=== PATIENT | male | born 1995 | race Two or more races ===

== ENCOUNTER 2019-12-12 15:35 | Emergency (ER) | payer OTHER ==
[2019-12-12] MEDS ORDERED: Lidocaine 1% 10 ML MDV INJECT ONE (15:53)
--- NOTE | 2019-12-12 15:59 | EDM.PDOC ---
ED HPI GENERAL MEDICAL PROBLEM - General Chief Complaint: Laceration Stated Complaint: R INDEX FINGER LAC Time Seen by Provider: 12/12/19 15:48 Source of Information: Reports: Patient History Limitations: Reports: No Limitations - History of Present Illness INITIAL COMMENTS - FREE TEXT/NARRATIVE: The patient was working up on a work over [employer] and a strong [place] of wind blew him around and he grabbed something to hold on and got his right index finger crushed. He has no other injuries. He is not sure of his last tetanus. He went to a clinic up by [place] and they did some x-rays and sent him here. He is right handed. Onset: Sudden Duration: Hour(s): Location: Reports: Upper Extremity, Right (index finger) Quality: Reports: Sharp Severity: Moderate Improves with: Reports: Immobilization Worsens with: Reports: Movement Context: Reports: Trauma (Crush injury to the right index finger) Associated Symptoms: Reports: No Other Symptoms Right Finger-Index Pain Score (Numeric/FACES): 7 - Related Data Allergies Allergy/AdvReac Type Severity Reaction Status Date / Time No Known Allergies Allergy Verified 12/12/19 15:48 Home Meds: Home Meds Hydrocodone/Acetaminophen [Hydrocodone-Acetamin 5-325 mg] 1 - 2 each PO Q6HR PRN #20 tablet 12/12/19 [Rx] cephALEXin [Keflex] 500 mg PO QID #28 capsule 12/12/19 [Rx] Past Medical History - Past Health History Medical/Surgical History: Denies Medical/Surgical History Social & Family History - Tobacco Use Smoking Status *Q: Never Smoker - Recreational Drug Use Recreational Drug Use: No ED ROS GENERAL - Review of Systems Review Of Systems: See Below Constitutional: Reports: No Symptoms HEENT: Reports: No Symptoms Respiratory: Reports: No Symptoms Cardiovascular: Reports: No Symptoms Endocrine: Reports: No Symptoms GI/Abdominal: Reports: No Symptoms : Reports: No Symptoms Musculoskeletal: Reports: Other (Right index finger has been crushed) ED EXAM, SKIN/RASH Exam: See Below Exam Limited By: No Limitations General Appearance: Alert, No Apparent Distress Ears: Normal External Exam Nose: Normal Inspection Head: Atraumatic, Normocephalic Neck: Normal Inspection Respiratory/Chest: No Respiratory Distress Extremities: Other (Edema to the right index finger with elevation of the entire nail. There is some superficial skin tears to the finger. He has good capillary refill and sensation to the finger.) ED SKIN PROCEDURES - Laceration/Wound Repair Right Digit - 2nd (Index) Appearance: Superficial, Irregular Distal NVT: Neuro & Vascular Intact, No Tendon Injury Anesthetic Type: Digital Local Anesthesia - Lidocaine (Xylocaine): 1% Plain Local Anesthetic Volume: 4cc Skin Prep: Saline Exploration/Debridement/Repair: Wound Explored, In a Bloodless Field, Explored to Base Closed with: Sutures Lac/Wound length In cm: 2 # of Sutures: 4 Suture Type: Nylon, Interrupted, Simple Tetanus Status Addressed: Yes Complications: No Course - Vital Signs Last Recorded V/S: Last Vital Signs Temp 97.8 F 12/12/19 15:46 Pulse 58 L 12/12/19 15:46 Resp 15 12/12/19 15:46 BP 138/88 12/12/19 15:46 Pulse Ox 100 12/12/19 15:46 - Orders/Labs/Meds Orders: Active Orders 24 hr Category Date Time Status Vaccines to be Administered [RC] PER UNIT ROUTINE Care 12/12/19 15:53 Active Meds: Medications Discontinued Medications Generic Name Dose Route Start Last Admin Trade Name Freq PRN Reason Stop Dose Admin Diphtheria/Tetanus/Acell Pertussis 0.5 ml 12/12/19 15:53 12/12/19 16:40 Adacel IM 12/12/19 15:54 0.5 ml .ONCE ONE Administration Lidocaine HCl 10 ml 12/12/19 15:53 12/12/19 16:42 Xylocaine 1% INJECT 12/12/19 15:54 10 ml ONETIME ONE Administration - Re-Assessments/Exams Free Text/Narrative Re-Assessment/Exam: 12/12/19 15:59 I ordered tetanus. I will try to load the films and take a look at them. I will numb his finger and see if I can close some of the lacerations. 12/12/19 16:56 His x-ray shows a small tuft fracture off the tip of the phalynx. I had to suture the nail in place for hemostasis and to close the wound it was at the base of the nail. He remembered he did have a tetanus shot a couple years ago. I canceled ours. I gave him a shot of rocephin 1 gram IM. I will also get him on keflex and something for pain. Departure - Departure Time of Disposition: 17:00 Disposition: Home, Self-Care 01 Condition: Good Clinical Impression: Crushing injury of finger of right hand, Nail bed injury Laceration of right index finger Qualifiers: Encounter type: initial encounter Damage to nail status: without damage Foreign body presence: without foreign body Qualified Code(s): S61.210A - Laceration without foreign body of right index finger without damage to nail, initial encounter Open finger fracture Qualifiers: Encounter type: initial encounter Finger: index finger Phalanx: distal Fracture alignment: nondisplaced Laterality: right Qualified Code(s): S62.660B - Nondisplaced fracture of distal phalanx of right index finger, initial encounter for open fracture - Discharge Information *PRESCRIPTION DRUG MONITORING PROGRAM REVIEWED*: No *COPY OF PRESCRIPTION DRUG MONITORING REPORT IN PATIENT HONG: No Prescriptions: Hydrocodone/Acetaminophen [Hydrocodone-Acetamin 5-325 mg] 1 - 2 each PO Q6HR PRN #20 tablet PRN Reason: Pain cephALEXin [Keflex] 500 mg PO QID #28 capsule Referrals: PCP,None [Primary Care Provider] - Ashkan Beltran MD [Physician] - 1 Week Forms: ED Department Discharge, ED Return to Work/School Form Additional Instructions: Take the Keflex 4 times per day for 7 days. Soak your finger in warm soapy water 2 times per day and apply antibiotic ointment after. Have the sutures removed in 7 to 10 days. Take motrin or tylenol for pain. If that does not work, try the hydrocodone. Follow up with Dr Beltran within a week. Please return if you are worse. Sepsis Event Note - Evaluation Sepsis Screening Result: No Definite Risk - Focused Exam Vital Signs: Vital Signs Temp Pulse Resp BP Pulse Ox 12/12/19 15:46 97.8 F 58 L 15 138/88 100 Date Exam was Performed: 12/12/19 Time Exam was Performed: 16:54 - My Orders Last 24 Hours: My Active Orders 12/12/19 15:53 Vaccines to be Administered [RC] PER UNIT ROUTINE - Assessment/Plan Last 24 Hours: My Active Orders 12/12/19 15:53 Vaccines to be Administered [RC] PER UNIT ROUTINE
[2019-12-12] MEDS: Diphtheria,Pertussis(Acell),Tetanus Vaccine 0.5 ML Syringe IM ONE ×2 (16:40→17:13)
[2019-12-12] MEDS ORDERED: cefTRIAXone 1 GM, Lidocaine 1% 2.1 ML IM SCH ×2 (17:00)
== END 2019-12-12 16:33 | disposition home or self-care (01) ==
LOC: JD.ED 15:35
DX: S62.660B Nondisplaced fracture of distal phalanx of right index finger, initial encounter for open fracture (principal); Z79.899 Other long term (current) drug therapy; W23.0XXA Caught, crushed, jammed, or pinched between moving objects, initial encounter
CPT/HCPCS: 11760; 96372; 99283; J0696; J2001; 12001; 90715

== ENCOUNTER 2023-05-06 10:33 | Emergency (ER) | payer OTHER ==
[2023-05-06 11:36] LABS: CORONAVIRUS COVID-19 NAA NEGATIVE (NEGATIVE); INFLUENZA A NAA NEGATIVE (NEGATIVE); RESPIRATORY SYNCYTIAL VIR NAA NEGATIVE (NEGATIVE)
[2023-05-06] MEDS ORDERED: Sodium Chloride 0.9% 10 ML Syringe FLUSH PRN (11:39)
[2023-05-06] MEDS ORDERED: Ondansetron 4 MG/2 ML SDV IVPUSH ONE (11:39)
[2023-05-06] MEDS ORDERED: Lactated Ringers 1,000 ML IV SCH (11:45)
[2023-05-06 11:55] LABS: BASOPHILS PERCENT AUTO 0.7 % (0.0-1.0); HEMATOCRIT 43.2 % (42.0-52.0); HEMOGLOBIN 15.2 gm/dl (14.0-18.0); IMMATURE GRAN ABSOLUTE AUTO 0.01 K/mm3 (0.00-0.05); IMMATURE GRAN PERCENT AUTO 0.3 % (0.0-0.4); LYMPHOCYTES ABSOLUTE AUTO 0.4 K/mm3 (1.0-4.8); LYMPHOCYTES PERCENT AUTO 14.9 % (24.0-44.0); MEAN CORPUSCULAR HEMOGLOBIN 30.2 pg (28.0-32.0); MEAN CORPUSCULAR HGB CONC 35.2 g/dl (32.0-36.0); MEAN CORPUSCULAR VOLUME 85.7 fl (83.0-99.0); MEAN PLATELET VOLUME 10.4 fl (9.4-12.4); MONOCYTES ABSOLUTE AUTO 0.3 K/mm3 (0.0-0.8); MONOCYTES PERCENT AUTO 10.2 % (0.0-8.0); NEUTROPHILS ABSOLUTE AUTO 2.2 K/mm3 (1.8-7.7); NEUTROPHILS PERCENT AUTO 73.9 % (41.0-71.0); PLATELET COUNT,PLT 111 K/mm3 (150-400); RED BLOOD CELL COUNT 5.04 M/mm3 (4.52-5.90); WHITE BLOOD CELL COUNT,WBC 2.95 K/mm3 (3.9-11.3)
[2023-05-06 12:15] LABS: A/G RATIO 1.2 (1-2); ALBUMIN 3.7 g/dl (3.4-5.0); BILIRUBIN TOTAL 0.5 mg/dL (0.2-1.0); BUN/CREATININE RATIO 8.3 (14-18); C-REACTIVE PROTEIN 2.3 mg/dL (<1.0); CALCIUM 8.7 mg/dL (8.5-10.1); CREATININE 1.2 mg/dL (0.7-1.3); EST CRCL DRUG DOSING (CG) 81.15 mL/min; PROTEIN TOTAL,TP 6.9 g/dl (6.4-8.2)
[2023-05-06 12:46] LABS: RETICULOCYTE COUNT PERCENT 1.37 % (0.50-2.00)
[2023-05-07 09:46] LABS: NEUTROPHILS% 58 % (41-71)
== END 2023-05-06 13:10 | disposition home or self-care (01) ==
LOC: JD.ED 10:33
DX: R50.9 Fever, unspecified (principal); D72.810 Lymphocytopenia; F17.210 Nicotine dependence, cigarettes, uncomplicated; Z20.822 Contact with and (suspected) exposure to COVID-19
CPT/HCPCS: 0241U; 36415; 80053; 85025; 85045; 86140; 86308; 87040; 96361; 96374; 99284; J2405; J7120

== ENCOUNTER 2023-05-07 11:20 | Emergency (ER) | payer OTHER ==
[2023-05-07] MEDS ORDERED: diphenhydrAMINE 50 MG/ML SDV IVPUSH ONE (12:06)
[2023-05-07] MEDS ORDERED: Sodium Chloride 0.9% 10 ML Syringe FLUSH PRN (12:06)
[2023-05-07] MEDS ORDERED: Metoclopramide 10 MG/2 ML SDV IVPUSH ONE (12:06)
[2023-05-07] MEDS ORDERED: Acetaminophen 325 MG Tab PO ONE (12:07)
[2023-05-07] MEDS ORDERED: Sodium Chloride 0.9% 1,000 ML IV SCH (12:15)
== END 2023-05-07 13:30 | disposition home or self-care (01) ==
LOC: JD.ED 11:20
DX: S06.0X0A Concussion without loss of consciousness, initial encounter (principal); W22.8XXA Striking against or struck by other objects, initial encounter
CPT/HCPCS: 70450; 96361; 96374; 96375; 99284; A9270; J1200; J2765; J3490; J7030

== ENCOUNTER 2023-05-08 17:30 | Emergency (ER) | payer OTHER ==
[2023-05-08] MEDS ORDERED: Metoclopramide 10 MG/2 ML SDV IVPUSH ONE (17:52)
[2023-05-08] MEDS ORDERED: Sodium Chloride 0.9% 10 ML Syringe FLUSH PRN (17:52)
[2023-05-08] MEDS ORDERED: Ketorolac 30 MG/ML SDV IVPUSH ONE (17:54)
[2023-05-08] MEDS ORDERED: diphenhydrAMINE 50 MG/ML SDV IVPUSH ONE (17:54)
[2023-05-08] MEDS ORDERED: Sodium Chloride 0.9% 1,000 ML IV SCH (18:00)
[2023-05-08 18:30] LABS: BASOPHILS PERCENT AUTO 0.5 % (0.0-1.0); HEMATOCRIT 37.6 % (42.0-52.0); HEMOGLOBIN 13.8 gm/dl (14.0-18.0); LYMPHOCYTES ABSOLUTE AUTO 0.3 K/mm3 (1.0-4.8); LYMPHOCYTES PERCENT AUTO 14.9 % (24.0-44.0); MEAN CORPUSCULAR HEMOGLOBIN 29.9 pg (28.0-32.0); MEAN CORPUSCULAR HGB CONC 36.7 g/dl (32.0-36.0); MEAN CORPUSCULAR VOLUME 81.6 fl (83.0-99.0); MEAN PLATELET VOLUME 11.2 fl (9.4-12.4); MONOCYTES ABSOLUTE AUTO 0.1 K/mm3 (0.0-0.8); MONOCYTES PERCENT AUTO 4.6 % (0.0-8.0); NEUTROPHILS ABSOLUTE AUTO 1.6 K/mm3 (1.8-7.7); PLATELET COUNT,PLT 53 K/mm3 (150-400); RED BLOOD CELL COUNT 4.61 M/mm3 (4.52-5.90)
[2023-05-08 18:43] LABS: WHITE BLOOD CELL COUNT,WBC 1.95 K/mm3 (3.9-11.3)
[2023-05-08 18:56] LABS: A/G RATIO 1.1 (1-2); ALBUMIN 3.5 g/dl (3.4-5.0); ANION GAP 14.6 (5-15); BILIRUBIN TOTAL 0.8 mg/dL (0.2-1.0); BUN/CREATININE RATIO 7.5 (14-18); C-REACTIVE PROTEIN 7.4 mg/dL (<1.0); CALCIUM 8.4 mg/dL (8.5-10.1); CREATININE 1.2 mg/dL (0.7-1.3); EST CRCL DRUG DOSING (CG) 81.15 mL/min; POTASSIUM,K 3.6 mEq/L (3.5-5.1); PROTEIN TOTAL,TP 6.6 g/dl (6.4-8.2)
[2023-05-08 19:06] LABS: CORONAVIRUS COVID-19 NAA NEGATIVE (NEGATIVE); INFLUENZA A NAA NEGATIVE (NEGATIVE); RESPIRATORY SYNCYTIAL VIR NAA NEGATIVE (NEGATIVE)
[2023-05-08 19:24] LABS: PROTEIN,CSF 40.3 mg/dl (15-45)
[2023-05-08 20:58] LABS: APPEARANCE,URINE CLEAR (Clear); BILIRUBIN,URINE 1+ (Negative); COLOR,URINE YELLOW (Yellow); GLUCOSE,URINE NEGATIVE (Negative); KETONES,URINE 3+ (Negative); LEUKOCYTE ESTERASE,URINE NEGATIVE (Negative); NITRITE,URINE NEGATIVE (Negative); OCCULT BLOOD,URINE NEGATIVE (Negative); PH,URINE 7.5 (5.0-8.0); PROTEIN,URINE 2+ (Negative); UROBILINOGEN,URINE >=8.0 (0.2-1.0)
[2023-05-08 21:18] LABS: BACTERIA,URINE MODERATE /hpf (FEW); MUCUS,URINE FEW /hpf (FEW); RBC,URINE 0-5 /hpf (0-5); SQUAMOUS EPITHELIAL CELLS,UR 0-5 /hpf (0-5); WBC,URINE 0-5 /hpf (0-5)
== END 2023-05-08 23:20 | disposition home or self-care (01) ==
LOC: JD.ED 17:30
DX: D72.810 Lymphocytopenia (principal); D69.6 Thrombocytopenia, unspecified; Z20.822 Contact with and (suspected) exposure to COVID-19
CPT/HCPCS: 0241U; 36415; 71045; 80053; 81001; 82945; 84157; 85025; 86140; 87070; 87205; 87651; 96361; 96374; 96375; 99284; J1200; J1885; J2765; J3490; J7030; 62272

== ENCOUNTER 2023-05-10 09:05 | Inpatient (IN) | payer OTHER ==
[2023-05-10] MEDS ORDERED: Sodium Chloride 0.9% 1,000 ML IV ONE (09:47)
[2023-05-10] MEDS ORDERED: Sodium Chloride 0.9% 10 ML Syringe FLUSH PRN (09:47)
[2023-05-10] MEDS ORDERED: Acetaminophen 325 MG Tab PO ONE (09:48)
[2023-05-10 10:19] LABS: HEMATOCRIT 34.9 % (42.0-52.0); HEMOGLOBIN 13.1 gm/dl (14.0-18.0); MEAN CORPUSCULAR HEMOGLOBIN 30.2 pg (28.0-32.0); MEAN CORPUSCULAR HGB CONC 37.5 g/dl (32.0-36.0); MEAN CORPUSCULAR VOLUME 80.4 fl (83.0-99.0); MEAN PLATELET VOLUME 11.1 fl (9.4-12.4); PLATELET COUNT,PLT 74 K/mm3 (150-400); RED BLOOD CELL COUNT 4.34 M/mm3 (4.52-5.90); WHITE BLOOD CELL COUNT,WBC 3.35 K/mm3 (3.9-11.3)
[2023-05-10 10:27] LABS: INR 1.12; PROTHROMBIN TIME 11.9 SECONDS (9.7-12.0)
[2023-05-10 10:30] LABS: BAND PERCENT MAN 1 % (0-10); BASOPHILS PERCENT MAN 1 (0.2-1.2); EOSINOPHILS PERCENT MAN 0 % (0.8-7.0); LYMPHOCYTES % ATYPICAL MANUAL 0 %; LYMPHOCYTES PERCENT MAN 9 % (20-40); MONOCYTES PERCENT MAN 2 % (2-10)
[2023-05-10 10:33] LABS: ANISOCYTOSIS 1+ SLIGHT; MICROCYTOSIS 1+ SLIGHT; SPHEROCYTES 1+ SLIGHT
[2023-05-10 10:34] LABS: PLATELET COUNT ESTIMATE DECREASED
[2023-05-10 10:35] LABS: TOXIC GRANULATION 1+ SLIGHT
[2023-05-10 10:41] LABS: ANION GAP 12.6 (5-15); BILIRUBIN TOTAL 0.7 mg/dL (0.2-1.0); C-REACTIVE PROTEIN 11.4 mg/dL (<1.0); CALCIUM 7.9 mg/dL (8.5-10.1); EST CRCL DRUG DOSING (CG) 97.38 mL/min; POTASSIUM,K 3.6 mEq/L (3.5-5.1); PROTEIN TOTAL,TP 6.1 g/dl (6.4-8.2)
[2023-05-10 11:03] LABS: LACTIC ACID 0.9 mmol/L (0.4-2.0)
[2023-05-10] MEDS ORDERED: HYDROmorphone 0.5 MG/0.5 ML Syringe IVPUSH ONE (11:54)
[2023-05-10 12:17] LABS: APPEARANCE,URINE SLT CLOUDY (Clear); BILIRUBIN,URINE NEGATIVE (Negative); COLOR,URINE YELLOW (Yellow); GLUCOSE,URINE NEGATIVE (Negative); KETONES,URINE 1+ (Negative); LEUKOCYTE ESTERASE,URINE NEGATIVE (Negative); NITRITE,URINE NEGATIVE (Negative); OCCULT BLOOD,URINE NEGATIVE (Negative); PH,URINE 7.5 (5.0-8.0); PROTEIN,URINE 2+ (Negative); UROBILINOGEN,URINE >=8.0 (0.2-1.0)
[2023-05-10 12:24] LABS: AMORPHOUS SEDIMENT,URINE FEW /hpf (NOT SEEN); BACTERIA,URINE MANY /hpf (FEW); MUCUS,URINE RARE /hpf (FEW); RBC,URINE 0-5 /hpf (0-5); SQUAMOUS EPITHELIAL CELLS,UR NOT SEEN /hpf (0-5); WBC,URINE 0-5 /hpf (0-5)
[2023-05-10] MEDS ORDERED: Ondansetron 4 MG Tab.DIS PO PRN (14:29)
[2023-05-10] MEDS ORDERED: Doxycycline 100 MG in Sodium Chloride 0.9% 100 ML IV ONE (14:50)
[2023-05-10] MEDS: Sodium Chloride 0.9% 1,000 ML IV SCH ×2 (14:52→22:57)
[2023-05-10] MEDS: Heparin Sodium 5,000 Units/ML Vial SUBCUT SCH ×2 (14:54→22:05)
[2023-05-10 18:42] LABS: BORDETELLA PARAPERT IS1001 Not Detected (Not Detected)
[2023-05-10] MEDS: Morphine 2 MG/ML SYRINGE IVPUSH PRN (20:01)
[2023-05-10] MEDS ORDERED: Doxycycline 100 MG in Sodium Chloride 0.9% 100 ML IV SCH (21:00)
[2023-05-10] MEDS: Acetaminophen 325 MG Tab PO PRN (22:58)
[2023-05-11 05:33] LABS: BASOPHILS PERCENT AUTO 0.6 % (0.0-1.0); HEMATOCRIT 31.8 % (42.0-52.0); HEMOGLOBIN 11.9 gm/dl (14.0-18.0); IMMATURE GRAN ABSOLUTE AUTO 0.02 K/mm3 (0.00-0.05); IMMATURE GRAN PERCENT AUTO 0.6 % (0.0-0.4); LYMPHOCYTES ABSOLUTE AUTO 0.5 K/mm3 (1.0-4.8); LYMPHOCYTES PERCENT AUTO 14.3 % (24.0-44.0); MEAN CORPUSCULAR HEMOGLOBIN 30.2 pg (28.0-32.0); MEAN CORPUSCULAR HGB CONC 37.4 g/dl (32.0-36.0); MEAN CORPUSCULAR VOLUME 80.7 fl (83.0-99.0); MEAN PLATELET VOLUME 10.7 fl (9.4-12.4); MONOCYTES ABSOLUTE AUTO 0.2 K/mm3 (0.0-0.8); MONOCYTES PERCENT AUTO 6.3 % (0.0-8.0); NEUTROPHILS ABSOLUTE AUTO 2.6 K/mm3 (1.8-7.7); NEUTROPHILS PERCENT AUTO 78.2 % (41.0-71.0); PLATELET COUNT,PLT 95 K/mm3 (150-400); RED BLOOD CELL COUNT 3.94 M/mm3 (4.52-5.90); WHITE BLOOD CELL COUNT,WBC 3.36 K/mm3 (3.9-11.3)
[2023-05-11 05:46] LABS: A/G RATIO 0.9 (1-2); ALBUMIN 2.5 g/dl (3.4-5.0); ANION GAP 12.6 (5-15); BILIRUBIN TOTAL 0.5 mg/dL (0.2-1.0); CALCIUM 7.8 mg/dL (8.5-10.1); EST CRCL DRUG DOSING (CG) 97.38 mL/min; MAGNESIUM 1.5 mg/dL (1.8-2.4); POTASSIUM,K 3.6 mEq/L (3.5-5.1); PROTEIN TOTAL,TP 5.3 g/dl (6.4-8.2)
[2023-05-11] MEDS: Heparin Sodium 5,000 Units/ML Vial SUBCUT SCH ×2 (06:00→15:31)
[2023-05-11 06:10] LABS: SLIDE REVIEW ABNORMAL SMEAR
[2023-05-11] MEDS: Morphine 2 MG/ML SYRINGE IVPUSH PRN (07:26)
[2023-05-11] MEDS: Sodium Chloride 0.9% 1,000 ML IV SCH ×2 (07:31→15:32)
[2023-05-11] MEDS: Doxycycline 100 MG in Sodium Chloride 0.9% 100 ML IV SCH ×2 (08:28→20:46)
[2023-05-11] MEDS: Acetaminophen 325 MG Tab PO PRN ×2 (10:49→17:33)
[2023-05-11] MEDS: oxyCODONE 5 MG Tab PO PRN ×2 (11:52→17:33)
[2023-05-12] MEDS: Sodium Chloride 0.9% 1,000 ML IV SCH ×3 (00:18→18:04)
[2023-05-12] MEDS: Heparin Sodium 5,000 Units/ML Vial SUBCUT SCH ×4 (00:18→22:43)
[2023-05-12] MEDS: oxyCODONE 5 MG Tab PO PRN (02:04)
[2023-05-12] MEDS: Acetaminophen 325 MG Tab PO PRN ×3 (06:23→20:21)
[2023-05-12] MEDS: Doxycycline 100 MG in Sodium Chloride 0.9% 100 ML IV SCH ×2 (09:17→20:22)
[2023-05-12] MEDS: cefTRIAXone 2 GM in Sodium Chloride 0.9% 100 ML IV SCH (17:20)
[2023-05-12] MEDS: valACYclovir 1,000 MG Tab PO SCH (17:20)
[2023-05-13] MEDS: Acetaminophen 325 MG Tab PO PRN ×3 (02:58→20:50)
[2023-05-13] MEDS: Sodium Chloride 0.9% 1,000 ML IV SCH ×3 (02:58→18:58)
[2023-05-13 05:35] LABS: BASOPHILS PERCENT AUTO 0.3 % (0.0-1.0); EOSINOPHILS PERCENT AUTO 0.3 % (0.0-6.0); HEMATOCRIT 33.7 % (42.0-52.0); HEMOGLOBIN 12.3 gm/dl (14.0-18.0); IMMATURE GRAN ABSOLUTE AUTO 0.02 K/mm3 (0.00-0.05); IMMATURE GRAN PERCENT AUTO 0.5 % (0.0-0.4); LYMPHOCYTES ABSOLUTE AUTO 0.7 K/mm3 (1.0-4.8); LYMPHOCYTES PERCENT AUTO 17.8 % (24.0-44.0); MEAN CORPUSCULAR HEMOGLOBIN 29.5 pg (28.0-32.0); MEAN CORPUSCULAR HGB CONC 36.5 g/dl (32.0-36.0); MEAN CORPUSCULAR VOLUME 80.8 fl (83.0-99.0); MEAN PLATELET VOLUME 9.8 fl (9.4-12.4); MONOCYTES ABSOLUTE AUTO 0.5 K/mm3 (0.0-0.8); MONOCYTES PERCENT AUTO 12.9 % (0.0-8.0); NEUTROPHILS ABSOLUTE AUTO 2.6 K/mm3 (1.8-7.7); NEUTROPHILS PERCENT AUTO 68.2 % (41.0-71.0); RED BLOOD CELL COUNT 4.17 M/mm3 (4.52-5.90); WHITE BLOOD CELL COUNT,WBC 3.87 K/mm3 (3.9-11.3)
[2023-05-13 05:40] LABS: ANION GAP 11.8 (5-15); CALCIUM 8.2 mg/dL (8.5-10.1); EST CRCL DRUG DOSING (CG) 97.38 mL/min; POTASSIUM,K 3.8 mEq/L (3.5-5.1)
[2023-05-13 05:55] LABS: PLATELET COUNT,PLT 225 K/mm3 (150-400)
[2023-05-13] MEDS: Heparin Sodium 5,000 Units/ML Vial SUBCUT SCH ×3 (06:56→23:46)
[2023-05-13] MEDS: Doxycycline 100 MG in Sodium Chloride 0.9% 100 ML IV SCH ×2 (08:44→20:50)
[2023-05-13] MEDS: valACYclovir 1,000 MG Tab PO SCH (08:44)
[2023-05-13] MEDS: cefTRIAXone 2 GM in Sodium Chloride 0.9% 100 ML IV SCH (16:30)
[2023-05-14] MEDS: Sodium Chloride 0.9% 1,000 ML IV SCH (02:34)
[2023-05-14 05:49] LABS: BASOPHILS PERCENT AUTO 0.3 % (0.0-1.0); EOSINOPHILS PERCENT AUTO 0.5 % (0.0-6.0); HEMATOCRIT 35.2 % (42.0-52.0); HEMOGLOBIN 12.7 gm/dl (14.0-18.0); IMMATURE GRAN ABSOLUTE AUTO 0.03 K/mm3 (0.00-0.05); IMMATURE GRAN PERCENT AUTO 0.8 % (0.0-0.4); LYMPHOCYTES ABSOLUTE AUTO 0.8 K/mm3 (1.0-4.8); LYMPHOCYTES PERCENT AUTO 20.6 % (24.0-44.0); MEAN CORPUSCULAR HEMOGLOBIN 29.7 pg (28.0-32.0); MEAN CORPUSCULAR HGB CONC 36.1 g/dl (32.0-36.0); MEAN CORPUSCULAR VOLUME 82.4 fl (83.0-99.0); MEAN PLATELET VOLUME 8.9 fl (9.4-12.4); MONOCYTES ABSOLUTE AUTO 0.6 K/mm3 (0.0-0.8); MONOCYTES PERCENT AUTO 13.8 % (0.0-8.0); NEUTROPHILS ABSOLUTE AUTO 2.6 K/mm3 (1.8-7.7); PLATELET COUNT,PLT 290 K/mm3 (150-400); RED BLOOD CELL COUNT 4.27 M/mm3 (4.52-5.90); WHITE BLOOD CELL COUNT,WBC 3.99 K/mm3 (3.9-11.3)
[2023-05-14 06:35] LABS: ANION GAP 14.3 (5-15); CALCIUM 8.4 mg/dL (8.5-10.1); CREATININE 0.8 mg/dL (0.7-1.3); EST CRCL DRUG DOSING (CG) 121.72 mL/min; POTASSIUM,K 4.3 mEq/L (3.5-5.1)
[2023-05-14] MEDS: Heparin Sodium 5,000 Units/ML Vial SUBCUT SCH (07:28)
[2023-05-14] MEDS: valACYclovir 1,000 MG Tab PO SCH (08:53)
[2023-05-14] MEDS: Doxycycline 100 MG in Sodium Chloride 0.9% 100 ML IV SCH (08:53)
== END 2023-05-14 14:25 | disposition home or self-care (01) | DRG 872 ==
LOC: JD.ED 09:05 → JD.MS 14:29
PROVIDERS: ADMIT Internal Medicine; ATTEND Internal Medicine
PROC: 3E03329 Introduction of Other Anti-infective into Peripheral Vein, Percutaneous Approach (ICD-10-PCS; principal; 2023-05-10)
PROC: 009U3ZZ Drainage of Spinal Canal, Percutaneous Approach (ICD-10-PCS; 2023-05-10)
DX: R50.9 Fever, unspecified (principal); E86.0 Dehydration; A41.9 Sepsis, unspecified organism; E87.1 Hypo-osmolality and hyponatremia; B00.1 Herpesviral vesicular dermatitis; Z20.822 Contact with and (suspected) exposure to COVID-19; R21 Rash and other nonspecific skin eruption; F17.210 Nicotine dependence, cigarettes, uncomplicated; D69.6 Thrombocytopenia, unspecified; Z11.52 Encounter for screening for COVID-19; Z79.2 Long term (current) use of antibiotics; Z79.1 Long term (current) use of non-steroidal anti-inflammatories (NSAID); Z98.890 Other specified postprocedural states
CPT/HCPCS: 36415; 80053; 81001; 83605; 84145; 85007; 85027; 85610; 86140; 86308; 86757; 86777; 86778; 87040 ×2; 87449; 87476; 87486; 87496; 87581; 87633; 96361; 96374; 99284; A9270; J1170; J7030; 80048; 83735; 85025; 99222; 99231; 99232; 99239; G0433; J0696; J1644; J2270; J3490

== ENCOUNTER 2024-06-12 10:37 | Emergency (ER) | payer OTHER ==
[2024-06-12] MEDS ORDERED: Sodium Chloride 0.9% 10 ML Syringe FLUSH PRN (11:18)
[2024-06-12 12:32] LABS: BASOPHILS PERCENT AUTO 0.4 % (0.0-1.0); EOSINOPHILS PERCENT AUTO 0.6 % (0.0-6.0); HEMATOCRIT 44.6 % (42.0-52.0); HEMOGLOBIN 14.9 gm/dl (14.0-18.0); IMMATURE GRAN ABSOLUTE AUTO 0.02 K/mm3 (0.00-0.05); IMMATURE GRAN PERCENT AUTO 0.3 % (0.0-0.4); LYMPHOCYTES ABSOLUTE AUTO 1.2 K/mm3 (1.0-4.8); LYMPHOCYTES PERCENT AUTO 17.7 % (24.0-44.0); MEAN CORPUSCULAR HEMOGLOBIN 29.7 pg (28.0-32.0); MEAN CORPUSCULAR HGB CONC 33.4 g/dl (32.0-36.0); MEAN PLATELET VOLUME 10.2 fl (9.4-12.4); MONOCYTES ABSOLUTE AUTO 0.6 K/mm3 (0.0-0.8); MONOCYTES PERCENT AUTO 8.5 % (0.0-8.0); NEUTROPHILS ABSOLUTE AUTO 4.9 K/mm3 (1.8-7.7); NEUTROPHILS PERCENT AUTO 72.5 % (41.0-71.0); PLATELET COUNT,PLT 174 K/mm3 (150-400); RED BLOOD CELL COUNT 5.01 M/mm3 (4.52-5.90); WHITE BLOOD CELL COUNT,WBC 6.71 K/mm3 (3.9-11.3)
[2024-06-12 13:24] LABS: ALBUMIN 3.5 g/dl (3.4-5.0); ANION GAP 12.2 (5-15); BILIRUBIN TOTAL 0.5 mg/dL (0.2-1.0); C-REACTIVE PROTEIN 5.47 mg/dL (<0.30); EST CRCL DRUG DOSING (CG) 96.52 mL/min; POTASSIUM,K 4.2 mEq/L (3.5-5.1); PROTEIN TOTAL,TP 7.1 g/dl (6.4-8.2)
[2024-06-12] MEDS: Lidocaine 1% 10 ML MDV INJECT ONE (14:40)
[2024-06-12 17:08] LABS: APPEARANCE SYNOVIAL FLUID SLIGHTLY CLOUDY (CLEAR); COLOR,SYNOVIAL FLUID AMBER; SITE,SYNOVIAL FLUID KNEE LEFT; VOLUME SYNOVIAL FLUID 60
[2024-06-12 21:45] LABS: WBC,SYNOVIAL FLUID 3000 cells/uL (0-200)
[2024-06-12 21:46] LABS: RBC,SYNOVIAL FLUID 10000 cells/uL (0-0)
== END 2024-06-12 15:25 | disposition home or self-care (01) ==
LOC: JD.ED 10:37
DX: M70.52 Other bursitis of knee, left knee (principal); Z79.899 Other long term (current) drug therapy
CPT/HCPCS: 20610; 36415; 80053; 85025; 86140; 87070; 87205; 89060; 99283-25; J3490